=== PATIENT | female | born 1960 | race Two or more races ===

== ENCOUNTER 2024-06-01 18:06 | Emergency (ER) | payer OTHER ==
[~2024-06-01] VITALS: Ht 162.6 cm; Wt 70.3 kg
[2024-06-01] MEDS ORDERED: TOPROL XL50 M1 PO (18:34)
[2024-06-01] MEDS ORDERED: GLUMETZA500 MG PO (18:34)
[2024-06-01] MEDS ORDERED: AVAPRO300 MG PO (18:34)
[2024-06-01] MEDS ORDERED: ROSUVASTATIN CA20 MG PO (18:35)
[2024-06-01 21:15] LABS: MEAN CELL VOLUME 85.4 fL (80.00-100.00); MEAN CORPUSCULAR HEMOGLOBIN 29.9 pg (27.00-32.0); PLATELET COUNT 325 K/uL (150-450); RED BLOOD COUNT 4.68 M/uL (4.00-6.00); RED CELL DISTRIBUTION WIDTH 13.4 % (11.5-14.5)
[2024-06-01] MEDS ORDERED: PEPCID AC20 MG PO (21:38)
[2024-06-01] MEDS ORDERED: AZITHROMYCIN500 MG PO (21:38)
== END 2024-06-01 22:05 | disposition home or self-care (01) ==
LOC: ER 18:09
PROVIDERS: General Practice
DX: R07.89 Other chest pain (principal); I10 Essential (primary) hypertension; E11.9 Type 2 diabetes mellitus without complications; Z79.84 Long term (current) use of oral hypoglycemic drugs

== ENCOUNTER 2024-06-10 13:28 | Outpatient (CLI) | payer OTHER ==
[~2024-06-10 13:28] MED LIST: AVAPRO300 MG PO; AZITHROMYCIN500 MG PO; GLUMETZA500 MG PO; PEPCID AC20 MG PO; ROSUVASTATIN CA20 MG PO; TOPROL XL50 M1 PO
== END 2024-06-10 13:42 | disposition home or self-care (01) ==
LOC: SONOGRAMA 13:28 → RAD 13:28
DX: M19.011 Primary osteoarthritis, right shoulder (principal); M54.2 Cervicalgia; M54.9 Dorsalgia, unspecified